=== PATIENT | male | born 1975 | race African-American/Black ===

== ENCOUNTER 2018-11-30 13:29 | Inpatient (IN) | payer OTHER ==
[~2018-11-30] VITALS: Ht 172.7 cm; Wt 118.3 kg
[~2018-11-30 13:29] MED LIST: ANUSOL-HC25 MG RECTAL; BACTRIM DS TAB1 EACH PO; HYDROCHLOROTHIA25 M2 PO; HYDROCODONE-AP1 EAC6 PO; IBUPROFEN 600600 M1 PO; METOPROLOL TART25 MG PO; NOHOMEMEDICATIONS; NORCO 5-325 TA1 EACH PO
[2018-11-30 13:32] VITALS: BP 154/118
[2018-11-30 13:58] LABS: ABSOLUTE NEUTROPHILS 9.2 thou/uL (1.4-8.2); BASOPHILS 0.6 % (0.0-2.0); EOSINOPHILS 1.1 % (0.0-3.0); HEMOGLOBIN 14.5 gm/dL (14.0-18.0); LYMPHOCYTES 9.3 % (24.0-44.0); MCH 27.5 pg (26.0-34.0); MCHC 32.9 g/dL (28.0-37.0); MCV 83.6 fL (80.0-100.0); MONOCYTES 9.9 % (1.0-8.0); PLATELET COUNT 225 thou/uL (150-400); POLYS 79.1 % (36.0-66.0); RBC 5.27 mil/uL (4.50-6.00); RDW 16.8 % (10.5-14.5); WBC 11.7 thou/uL (4.0-11.0)
[2018-11-30 14:06] LABS: CREATININE 1.4 mg/dL (0.7-1.3); POTASSIUM 3.2 mmol/L (3.5-5.1)
[2018-11-30 14:06] LABS: BE(vivo) -0.6 mmol/L (-2 to +3); HCO3 22.3 mmol/L (22.0-26.0); PCO2 32.2 mmHg (35.0-45.0); PO2 70.5 mmHg (80.0-100.0); pH 7.459 (7.360-7.450); sO2 95.1 % (92.0-98.0)
[2018-11-30 14:16] LABS: ALBUMIN 4.1 g/dL (3.4-5.0); TOTAL PROTEIN 7.7 g/dL (6.4-8.2); TROPONIN-I 0.12 ng/mL (<0.06)
[2018-11-30 17:29] VITALS: BP 156/109
--- NOTE | 2018-11-30 19:40 | NUR ---
ROOM 358
[2018-11-30 20:03] VITALS: BP 120/81
[2018-11-30 20:30] VITALS: BP 132/86
[2018-11-30] MEDS ORDERED: HYDRALAZINE 5050 MG PO (22:29)
[2018-11-30] MEDS ORDERED: IMDUR 30 MG TAB30 M1 PO (22:29)
[2018-11-30] MEDS ORDERED: VITAMIN D2000 UNIT PO (22:30)
[2018-11-30] MEDS ORDERED: COREG25 MG PO (22:30)
[2018-11-30] MEDS ORDERED: FUROSEMIDE 40 M40 M1 PO (22:31)
[2018-11-30] MEDS ORDERED: COZAAR 25 MG TA25 M1 PO (22:31)
[2018-11-30] MEDS ORDERED: ALLOPURINOL 10100 M1 PO (22:33)
[2018-11-30] MEDS ORDERED: IRON325 PO (22:34)
[2018-11-30] MEDS ORDERED: ASPIR-LOW81 MG PO (22:35)
[2018-11-30] MEDS ORDERED: POTASSIUM20 PO (22:36)
[2018-11-30 23:36] VITALS: BP 144/99
--- NOTE | 2018-12-01 01:21 | NUR ---
2100: ADMISSION FROM ER PER CART. ADMISSION PROCESS INTIATED AND COMPLETED. COMPLAINTS OF NON CARDIAC CHEST PAIN WITH DEEP BREATHING FROM COUGHING. ORIENTED TO ROOM AND FLOOR POLICIES. VSS. O2 SAT 97% ON RA. STATES JUST GETS SHORTNESS OF AIR WITH ACTIVITY DUE TO CHF. RT TREATMENTS NEEDED. CONTINUE TO ASSES. 0130: SLEEPING WITHOUT PRESENT COMPLAINTS. UP WITH STANDBY ASSIST. PATIENT STATES IS HAVING LOOSE STOOLS. REQUESTED TO SAVE NEXT ONE SO CAN EVALUATE. CONTINUE TO ASSES CLOESLY. WORKING ON GOALS AND PLAN OF CARE FOR NOC.
[2018-12-01 05:29] VITALS: BP 150/99
[2018-12-01 05:40] LABS: ABSOLUTE NEUTROPHILS 11.6 thou/uL (1.4-8.2); BASOPHILS 0.4 % (0.0-2.0); EOSINOPHILS 0.1 % (0.0-3.0); HEMOGLOBIN 14.4 gm/dL (14.0-18.0); LYMPHOCYTES 5.9 % (24.0-44.0); MCH 28.1 pg (26.0-34.0); MCHC 32.7 g/dL (28.0-37.0); MCV 86.1 fL (80.0-100.0); PLATELET COUNT 224 thou/uL (150-400); POLYS 91.6 % (36.0-66.0); RBC 5.11 mil/uL (4.50-6.00); RDW 16.9 % (10.5-14.5); WBC 12.7 thou/uL (4.0-11.0)
[2018-12-01 05:48] LABS: CREATININE 1.3 mg/dL (0.7-1.3); MAGNESIUM 2.1 mg/dL (1.8-2.4)
--- NOTE | 2018-12-01 07:58 | EKG ---
[address] [place] [address] ELECTROCARDIOGRAM REPORT Name: CAITLIN JIMENES Room #: 358-P ADM IN M.R.#: [id number] ������������������ Admission: 11/30/18 ������������������ Attend Phys: Portillo Belle MD Discharge: ������������������ Date of : 77 Report #: [id number] ����������������������������������������������������������������� [id number] THIS REPORT FOR: //name// [facility] ED Test Date: 2018-11-30 Test Time: 13:41:18 Pat Name: CAITLIN JIMENES Department: Room: 358 Gender: M Sheet [employer]inter: HILDA : 1975 Requested By: Yuliet Bautista Order Number: [id number] MD: Alejandro Aguiar Measurements Intervals [place] Rate: 112 P: 68 AR: 172 QRS: -48 QRSD: 112 T: 14 QT: 362 QTc: 494 Interpretive Statements Sinus tachycardia LAE, consider biatrial enlargement LAD, consider left anterior fascicular block Abnormal R-wave progression, late transition Left ventricular hypertrophy Electronically Signed On 12-01-2018 7:58:23 CDT by Alejandro Aguiar [email or web address] ��������������������������������������������� <ELECTRONICALLY SIGNED> ���������������������������������������� By: Alejandro Aguiar MD ��������������������������������������������� 12/01/18 0758 1341 1341 Alejandro Aguiar MD /EPI
[2018-12-01 08:14] VITALS: BP 168/115
--- NOTE | 2018-12-01 11:37 | NUR ---
Received order for diet education for CHF, fluid restriction. Pt with HTN, CHF and on lasix. Upon visit, pt with very short responses, denied need for education and/or education materials. Stated he follows his diet but would not give specific diet hx at this time. Available if pt changes his mind. Aware of menu options and that he in on heart healthy, low Na diet order. Low nutrition risk
--- NOTE | 2018-12-01 15:50 | NUR ---
INITIAL ASSESSMENT: Received consult due to pt having services. GRETCHEN reviewed chart and spoke with nursing and attending physician. Pt was admitted from home due to pneumonia. [place] [facility] [place] Pt is on IV abx and IV steroids. Pt is on PO lasix. GRETCHEN met with pt at bedside. Introduced role of SW. Pt is alert/orientated x 4. Pt reports he lives at home with his and family. Prior to admission, pt was independent with ADLs. Pt does have a cane for long distance ambulation. Pt states he has Medicaid in-home services through [facility] 2.5 hrs daily. Pt will start having an RN come out monthly to set up medications. Pt's PCP is Dr. Angel Mcfarlane at [facility]. Plan is for pt to discharge home when medically stable. GRETCHEN is following to assist as needed with discharge planning.
--- NOTE | 2018-12-01 16:19 | NUR ---
Assumed care of patient at 0700. BP elevated, but medications adjusted per physician. Otherwise, VSS. Patient alert and oriented x4. Complaints of mild non-cardiac chest pain, only when coughing. Otherwise, denies nausea, trouble breathing. Does get SOB when walking long distances. Has coughed up very small amount of blood, but states is coughing less today and is feeling much better today, compared to yesterday. Fall precautions in place. Calls appropriately and up with SBA. Compliant with diet and fluid restriction. Voiding per urinal or bathroom. Slowly progressing towards POC. Will continue to monitor.
[2018-12-01 16:28] VITALS: BP 123/64
[2018-12-01 19:51] VITALS: BP 110/74
[2018-12-02 04:46] VITALS: BP 141/98
[2018-12-02 07:24] VITALS: BP 147/79
--- NOTE | 2018-12-02 07:34 | NUR ---
Pt. didn't sleep till later this am which he said is not unusual for him. Tolerating room air well. Reported shortness of breath with exertion. Pain when coughing ,denies need for pain med. Sputum sent to lab. Small amount of blood per sputum. Will continue to monitor.
--- NOTE | 2018-12-02 09:47 | 2DMMODE ---
[facility] [address] [place] [address] 2 D/M-MODE ECHOCARDIOGRAM Name: CAITLIN JIMENES Room #: 358-P [facility] IN M.R.#: [id number] ������������� Admission: 11/30/18 ������������� Attend Phys: Portillo Belle, Discharge: ��� ������������� ��� Date of : 77 Date of Service: 12/02/18 0947 �� Report #: [id number] �������� ��������������������������������������������[id number] THIS REPORT FOR: //name// APPROVED REPORT Study performed: 12/02/2018 08:35:49 EXAM: Comprehensive 2D, Doppler, and color-flow Echocardiogram Patient Location: Echo lab Room #: 358 Status: routine BSA: 2.28 HR: 101 bpm BP: 147/79 mmHg Rhythm: Tachycardia Other Information Study Quality: Adequate Indications Congestive Heart Failure Dyspnea Chest Pain Hypertension/HDD 2D Dimensions RVDd: 45.00 mm IVSd: 14.03 (7-11mm) LVOT Diam: 22.65 (18-24mm) LVDd: 67.32 mm PWd: 13.74 (7-11mm) Ascending Ao: 27.89 (22-36mm) LVDs: 56.47 (25-40mm) Aortic Root: 35.43 mm IVC: 25.00 mm Volumes Left Atrial Volume (Systole) Single Plane 4CH: 99.05 mL Single Plane 2CH: 66.98 mL LA ESV Index: 40.00 mL/m2 Aortic Valve AoV Peak Eyal.: 1.80 m/s AO Peak Gr.: 12.98 mmHg LVOT Max P.78 mmHg LVOT Max V: 1.20 m/s KEVIN Vmax: 2.69 cm2 Mitral Valve [facility] [address] [address] 2 D/M-MODE ECHOCARDIOGRAM Name: CAITLIN JIMENES Room #: 358-P [facility] IN [facility]#: [id number] ������������� Admission: 11/30/18 ������������� Attend Phys: Portillo Belle, Discharge: ��� ������������� ��� Date of : 77 Date of Service: 12/02/18 0947 �� Report #: [id number] �������� ��������������������������������������������[id number] E/A Ratio: 2.1 MV Decel. Time: 101.57 ms MV E Max Eyal.: 1.21 m/s MV A Eyal.: 0.57 m/s MV PHT: 29.46 ms IVRT: 55.36 ms Pulmonary Valve PV Peak Eyal.: 1.12 m/s PV Peak Gr.: 5.10 mmHg Pulmonary Vein P Vein S: 0.26 m/s P Vein A: 0.33 m/s P Vein D: 0.64 m/s P Vein A Dur.: 96.9 msec P Vein S/D Ratio: 0.41 Tricuspid Valve TR Peak Eyal.: 3.98 m/s TR Peak Gr.: 63.45 mmHg PA Pressure: 73.00 mmHg Left Ventricle Left ventricle is dilated. Regional wall motion is normal. Mild concentric left ventricular hypertrophy. Left ventricular systolic function is moderate to severely decreased. LVEF is 35-40%. Grade III - reversible restrictive diastolic dysfunction. Right Ventricle Right ventricle is mildly dilated. The right ventricular systolic function is normal. Atria Left atrium is dilated. Right atrium is dilated. Aortic Valve The aortic valve is normal in structure. Mild aortic regurgitation. There is no aortic valvular stenosis. Mitral Valve The mitral valve is normal in structure. Mild mitral regurgitation. No evidence of mitral valve stenosis. Tricuspid Valve The tricuspid valve is normal in structure. There is mild tricuspid regurgitation. Estimated PAP 70 mmHg. There is severe pulmonary hypertension. [facility] [address] [place] [address] 2 D/M-MODE ECHOCARDIOGRAM Name: CAITLIN JIMENES Room #: 358-[facility] IN .R.#: [id number] ������������� Admission: 11/30/18 ������������� Attend Phys: Portillo Belle, Discharge: ��� ������������� ��� Date of : 77 Date of Service: 12/02/18 0947 �� Report #: [id number] �������� ��������������������������������������������[id number] Pulmonic Valve The pulmonary valve is normal in structure. Trace to mild pulmonic regurgitation. Great Vessels The aortic root is normal in size. IVC is dilated and collapses <50% with inspiration. Pericardium There is no pericardial effusion. <Conclusion> Left ventricle is dilated. Mild concentric left ventricular hypertrophy. Left ventricular systolic function is moderate to severely decreased. Grade III - reversible restrictive diastolic dysfunction. Right ventricle is mildly dilated. Left atrium is dilated. Right atrium is dilated. Mild aortic regurgitation. Mild mitral regurgitation. There is mild tricuspid regurgitation. Estimated PAP 70 mmHg. There is severe pulmonary hypertension. ��������������������������������������������� <ELECTRONICALLY SIGNED> ���������������������������������������� By: Dixon Rodriguez MD ��������������������������������������������� 12/02/1847 6 6 Dixon Rodriguez MD /INF
--- NOTE | 2018-12-02 14:50 | NUR ---
SW reviewed chart and spoke with nursing and attending physician. Pt is progressing towards goals for discharge. Discharge home is anticipated for tomorrow. SW is following to assist as needed with discharge planning.
[2018-12-02 16:03] VITALS: BP 130/89
--- NOTE | 2018-12-02 18:46 | NUR ---
ASSUMED CARE OF PT AT 0700. PATIENT HAS BEEN A&Ox4. SR ON TELE. PT DENIES ALL PAIN EXCEPT WHEN COUGHING. PAIN IN CHEST DURING COUGH. PT WAS FREE FROM HEMOPTYSIS UNTIL ABOUT 1730 WHEN PT BEGAN NOTICING BLOOD IN SPUTUM AGAIN. PATIENT REMAINS ON ABX. SLOWLY PROGRESSING TOWARD POC GOALS. WILL CONTINUE TO MONITOR AND ASSESS.
[2018-12-02 19:08] VITALS: BP 116/79
[2018-12-03 04:45] VITALS: BP 144/81
[2018-12-03 05:42] LABS: HEMATOCRIT 40.5 % (42.0-52.0); HEMOGLOBIN 13.3 gm/dL (14.0-18.0); MCH 28.2 pg (26.0-34.0); MCHC 32.8 g/dL (28.0-37.0); RBC 4.71 mil/uL (4.50-6.00); WBC 18.5 thou/uL (4.0-11.0)
[2018-12-03 05:45] LABS: CALCIUM 8.9 mg/dL (8.5-10.1); CREATININE 1.4 mg/dL (0.7-1.3); POTASSIUM 4.1 mmol/L (3.5-5.1)
--- NOTE | 2018-12-03 06:08 | NUR ---
PT MAKING SLOW PROGRESS TOWARDS GOALS. PT LUNGS CLEAR AND DIMINISHED THROUGHOUT. OCCASIONAL HARSH COUGH WITH BLOOD TINGED SPUTUM NOTED. DID OBSERVE SNORING OVERNIGHT. PT DENIES THAT HE SLEEPS WITH OXYGEN OR CPAP. DID STATE THAT HE WAS SUPPOSED TO GO TO [facility] TO GET EVALUATED FOR SLEEP APNEA TODAY. WILL ASK DAY RN TO REPORT THIS TO PHYSICIAN.
[2018-12-03 07:36] VITALS: BP 144/94
[2018-12-03] MEDS ORDERED: MUCINEX600 MG PO (12:27)
[2018-12-03] MEDS ORDERED: PREDNISONE 20 M20 MG PO (12:28)
[2018-12-03] MEDS ORDERED: CEFUROXIME500 MG PO (12:28)
--- NOTE | 2018-12-03 13:04 | NUR ---
DISCHARGE NOTE: SW reviewed chart and spoke with nursing and attending physician. Pt is medically stable for discharge home today. Pt will resume Medicaid in-home services. No additional SW needs identified at this time, but is available to assist should needs arise.
[2018-12-03 14:27] VITALS: BP 144/94
[2018-12-03 14:46] VITALS: BP 144/94
--- NOTE | 2018-12-03 18:18 | NUR ---
Assumed care of patient at 0700. Vitals have been stable. Alert and oriented x4. Notes some mild non-cardiac chest pain when coughing. Otherwise, denies pain. States is still having a small amount of blood-tinged sputum, but improving. Up ad david in room with steady gait. Discharge orders received. Reviewed instructions, follow up appointments and new prescriptions with patient and spouse at bedside. Verbalizes understanding. IV and telemetry discontinued. Belongings gathered. Denies any home meds or items locked in pharmacy or security. Transported to private vehicle via wheelchair to discharge home.
== END 2018-12-03 15:05 | disposition home or self-care (01) | DRG 871 ==
LOC: ER 13:29 → 3W 17:37 → EROBS 17:37 → 3W 20:06 → ENTRNSPT 12-03 14:50 → EDTRNSPTSTS 12-03 14:57 → 3W 12-03 15:05
PROVIDERS: Hospitalist; Nurse Practitioner; Physician Assistant; ADMIT Internal Medicine
DX: A41.9 Sepsis, unspecified organism (principal); J18.1 Lobar pneumonia, unspecified organism; N17.9 Acute kidney failure, unspecified; I13.0 Hypertensive heart and chronic kidney disease with heart failure and stage 1 through stage 4 chronic kidney disease, or unspecified chronic kidney disease; M10.9 Gout, unspecified; E87.6 Hypokalemia; N18.9 Chronic kidney disease, unspecified; I50.9 Heart failure, unspecified; R10.9 Unspecified abdominal pain; I25.10 Atherosclerotic heart disease of native coronary artery without angina pectoris; Y95 Nosocomial condition; Z87.891 Personal history of nicotine dependence; Z79.82 Long term (current) use of aspirin; Z79.899 Other long term (current) drug therapy
CPT/HCPCS: 10879